=== PATIENT | male | born 2000 ===

== ENCOUNTER 2019-12-15 06:16 | Emergency (ER) | payer SELFPAY ==
[~2019-12-15] VITALS: Ht 180 cm; Wt 81.6 kg
--- OUTSIDE RECORDS SUMMARY | 2019-12-15 06:23 | XMS REPORT | Continuity of Care Document ---
Author Organization Unknown Address Unknown Phone Unavailable Allergies There is no data. Medications There is no data. Problems There is no data. Procedures There is no data. Results There is no data. Encounters ACCT No. Visit Date/Time Discharge Status Pt. Type Provider Facility Loc./Unit Complaint [id number] 12/14/2019 11:40:00 ACT Outpatient [facility] [id number] 12/15/2019 06:19:[address] Emergency DENI COPELAND, PRAKASH Torres [facility] [address] ER FS LT LEG BITE
--- NOTE | 2019-12-15 06:45 | ED Integumentary General ---
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 his own 3 days ago he also apparently has become homeless at about the same time He has several medical concerns 1 - is a reddened area above his left ankle posterior medial, he is unaware of any specific injury here or any bite or anything happening there, no open wound or drainage 2 - to he says also about 3 days ago he started to have cough with green sputum and some shortness of breath and feels he's had a low-grade temp 3 - also describes pain with swallowing, generalized soreness, ankles sore from being on his feet all day, feels he has sore lymph nodes in his neck He denies knowledge of any active medical conditions prior hospitalizations or medications prior to being seen yesterday he was seen in a clinic yesterday, says he is not satisfied with that encounter no blood work or other investigations were performed he was prescribed Keflex and Septra DS, he has taken one dose of each and says his ankle is, if anything, worse Allergies and Home Medications Patient Home Medication List Home Medication List Reviewed: Yes Review of Systems Review of Systems Constitutional: fever (subjective) EENTM: No throat pain Respiratory: cough, short of breath Cardiovascular: chest pain (pain with swallowing); No syncope Gastrointestinal: No abdominal pain, No diarrhea Genitourinary: no symptoms reported Musculoskeletal: other (both ankles sore and slightly swollen from being on feet all day reddened sore area above his left ankle) Past Nvxoobn-Wtggak-Zrelqx Hx Patient Social History Recent Foreign Travel: No Contact w/Someone Who Travel: No Physical Exam Vital Signs Vital Signs - First Documented 12/15/19 06:29 Temp 36.3 Pulse 88 Resp 20 B/P (MAP) 134/85 (101) Pulse Ox 95 O2 Delivery Room Air Capillary Refill : General Appearance: no apparent distress HEENT: PERRL/EOMI, TMs normal, pharynx normal Neck: supple, other (no definite lymphadenopathy appreciated) Cardiovascular: regular rate, rhythm Respiratory: normal breath sounds, no respiratory distress Gastrointestinal: normal bowel sounds, soft Back: normal inspection (pt has slight ankle edema and tenderness bilaterally has reddened area 7 cm diameter above the left ankle faint central darkness nothing necrotic no blister no ascending red streaks no open wound no drainage) Progress/Results/Core Measures Results/Orders Lab Results Laboratory Tests Test 12/15/19 06:55 Range/Units White Blood Count 8.0 4.3-11.0 10^3/uL Red Blood Count 4.53 4.35-5.85 10^6/uL Hemoglobin 13.4 13.3-17.7 G/DL Hematocrit 40 40-54 % Mean Corpuscular Volume 89 80-99 FL Mean Corpuscular Hemoglobin 30 25-34 PG Mean Corpuscular Hemoglobin Concent 33 32-36 G/DL Red Cell Distribution Width 13.0 10.0-14.5 % Platelet Count 215 130-400 10^3/uL Mean Platelet Volume 9.5 7.4-10.4 FL Neutrophils (%) (Auto) 56 42-75 % Lymphocytes (%) (Auto) 26 12-44 % Monocytes (%) (Auto) 13 H 0-12 % Eosinophils (%) (Auto) 4 0-10 % Basophils (%) (Auto) 1 0-10 % Neutrophils # (Auto) 4.5 1.8-7.8 X 10^3 Lymphocytes # (Auto) 2.1 1.0-4.0 X 10^3 Monocytes # (Auto) 1.0 0.0-1.0 X 10^3 Eosinophils # (Auto) 0.3 0.0-0.3 10^3/uL Basophils # (Auto) 0.0 0.0-0.1 10^3/uL Sodium Level 141 135-145 MMOL/L Potassium Level 3.9 3.6-5.0 MMOL/L Chloride Level 104 98-107 MMOL/L Carbon Dioxide Level 24 21-32 MMOL/L Anion Gap 13 5-14 MMOL/L Blood Urea Nitrogen 17 7-18 MG/DL Creatinine 1.03 0.60-1.30 MG/DL Estimat Glomerular Filtration Rate > 60 BUN/Creatinine Ratio 17 Glucose Level 94 70-105 MG/DL Calcium Level 8.7 8.5-10.1 MG/DL Corrected Calcium 8.7 8.5-10.1 MG/DL Total Bilirubin 1.1 H 0.1-1.0 MG/DL Aspartate Amino Transf (AST/SGOT) 27 5-34 U/L Alanine Aminotransferase (ALT/SGPT) 14 0-55 U/L Alkaline Phosphatase 67 40-136 U/L Total Protein 6.6 6.4-8.2 GM/DL Albumin 4.0 3.2-4.5 GM/DL My Orders Orders - CHELA FLOYD MD Cbc With Automated Diff (12/15/19 06:39) Comprehensive Metabolic Panel (12/15/19 06:39) Chest Pa/Lat (2 View) (12/15/19 06:39) Vital Signs/I&O 12/15/19 06:29 Temp 36.3 Pulse 88 Resp 20 B/P (MAP) 134/85 (101) Pulse Ox 95 O2 Delivery Room Air Progress Progress Note : Progress Note CBC - Hb 13.4 WBC 8,000 CMP - essentially normal CXR - normal Departure Impression Primary Impression: Spider bite Qualified Codes: T63.304D - Toxic effect of unspecified spider venom, undetermined, subsequent encounter Additional Impressions: Ankle edema Acute bronchitis Qualified Codes: J20.9 - Acute bronchitis, unspecified Disposition: 01 HOME, SELF-CARE Condition: Unchanged Departure-Patient Inst. Decision time for Depature: 07:43 Patient Instructions: Acute Bronchitis, Dependent Edema (DC), Spider Bites CHELA FLOYD MD Dec 15, 2019 06:45
--- NOTE | 2019-12-15 06:59 | Diagnostic Imaging Report ---
INDICATION: Bit on leg. Shortness of breath. FINDINGS: PA and lateral views. The lungs are well-aerated and clear. There is no air-trapping. Heart is not enlarged. No pneumothorax or pleural effusion. No bony abnormalities. IMPRESSION: Normal PA and lateral chest. Dictated by: Dictated on workstation # [id number]
[2019-12-15 07:08] LABS: HEMATOCRIT 40 % (40-54); HEMOGLOBIN 13.4 G/DL (13.3-17.7); MEAN CORPUSCULAR HEMOGLOBIN 30 PG (25-34); MEAN CORPUSCULAR HGB CONC 33 G/DL (32-36); MEAN CORPUSCULAR VOLUME 89 FL (80-99)
[2019-12-15 07:09] LABS: BASOPHILS % (AUTO) 1 % (0-10); EOSINOPHILS # (AUTO) 0.3 10^3/uL (0.0-0.3); EOSINOPHILS % (AUTO) 4 % (0-10); LYMPHOCYTES # (AUTO) 2.1 X 10^3 (1.0-4.0); LYMPHOCYTES % (AUTO) 26 % (12-44); MEAN PLATELET VOLUME 9.5 FL (7.4-10.4); MONOCYTES % (AUTO) 13 % (0-12); NEUTROPHILS # (AUTO) 4.5 X 10^3 (1.8-7.8); NEUTROPHILS % (AUTO) 56 % (42-75); PLATELET COUNT 215 10^3/uL (130-400)
[2019-12-15 07:31] LABS: ALANINE AMINOTRANSFERASE 14 U/L (0-55); ALKALINE PHOSPHATASE 67 U/L (40-136); BILIRUBIN,TOTAL 1.1 MG/DL (0.1-1.0); BUN/CREATININE RATIO 17; CALCIUM 8.7 MG/DL (8.5-10.1); CARBON DIOXIDE 24 MMOL/L (21-32); CHLORIDE 104 MMOL/L (98-107); CREATININE SERUM 1.03 MG/DL (0.60-1.30); GFR ESTIMATED > 60; GLUCOSE 94 MG/DL (70-105); POTASSIUM 3.9 MMOL/L (3.6-5.0); SODIUM 141 MMOL/L (135-145); TOTAL PROTEIN 6.6 GM/DL (6.4-8.2)
[2019-12-15 07:50] VITALS: BP 124/72
== END 2019-12-15 07:48 | disposition home or self-care (01) ==
LOC: ER FS 06:19
DX: S90.562A Insect bite (nonvenomous), left ankle, initial encounter (principal); J20.9 Acute bronchitis, unspecified; M25.472 Effusion, left ankle; W57.XXXA Bitten or stung by nonvenomous insect and other nonvenomous arthropods, initial encounter
CPT/HCPCS: 36415; 71046; 80053; 85025